=== PATIENT | female | born 1965 | race Asian ===

== ENCOUNTER 2016-08-11 22:34 | Emergency (ER) | payer OTHER ==
[~2016-08-11] VITALS: Ht 167.6 cm; Wt 75.0 kg
[~2016-08-11 22:34] MED LIST: INSNOV SQ; LISI-660 PO; METF-515 PO; SIMV20 PO
[2016-08-11] MEDS ORDERED: GLIP10 PO (22:45)
[2016-08-11] MEDS ORDERED: SITA100 PO (22:45)
[2016-08-11 22:51] LABS: GLUCOSE,POINT OF CARE 248 MG/DL (70-110)
[2016-08-11 23:59] VITALS: BP 141/81
[2016-08-12] MEDS ORDERED: IBUPROFEN 800 MG TABLET PO ONE
== END 2016-08-11 23:59 | disposition home or self-care (01) ==
LOC: EMS 22:36
DX: J06.9 Acute upper respiratory infection, unspecified (principal); E11.9 Type 2 diabetes mellitus without complications; I10 Essential (primary) hypertension; E78.00 Pure hypercholesterolemia, unspecified; Z91.041 Radiographic dye allergy status
CPT/HCPCS: 82962; 99283